=== PATIENT | female | born 1995 | race Caucasian/White ===

== ENCOUNTER 2021-01-15 19:13 | Emergency (ER) | payer MEDICAID ==
--- NOTE | 2021-01-15 21:05 | EDM.PDOC ---
ED HPI GENERAL MEDICAL PROBLEM - General Chief Complaint: VISUALIZER Problem Stated Complaint: 18 WKS -VAGINAL PRESSURE Time Seen by Provider: 01/15/21 19:41 Source of Information: Reports: Patient, RN Notes Reviewed History Limitations: Reports: No Limitations - History of Present Illness INITIAL COMMENTS - FREE TEXT/NARRATIVE: Patient is a 25-year-old female who presents to the ER for evaluation of her and vaginal/pelvic pressure. Patient states she is about 18 weeks . She is a A1 with 1 spontaneous miscarriage. She is followed by Dr. Busby for VISUALIZER. States that everything is been going well with the . She states over the last couple days however she has had some whitish discharge coming from her vagina but no gush of fluids, or any sort of vaginal bleeding. Patient is having some pelvic pressure but not a lot of other urinary symptoms. States she is going low but more frequent than normal. But she attributed that to . She states that she still has the pressure after she voids however. Patient denies any other sick-like symptoms, fever/chills, cough/shortness of breath, nausea/vomiting/diarrhea. Lower Abdomen Pain Score (Numeric/FACES): 6 - Related Data Allergies Allergy/AdvReac Type Severity Reaction Status Date / Time No Known Allergies Allergy Verified 01/15/21 19:31 Home Meds: Home Meds . [No Known Home Meds] 01/15/21 [History] Past Medical History - Past Health History Medical/Surgical History: Denies Medical/Surgical History Social & Family History - Tobacco Use Tobacco Use Status *Q: Never Tobacco User Second Hand Smoke Exposure: No - Recreational Drug Use Recreational Drug Use: No ED ROS GENERAL - Review of Systems Review Of Systems: Comprehensive ROS is negative, except as noted in HPI. ED EXAM - Physical Exam Exam: See Below Exam Limited By: No Limitations General Appearance: Alert, WD/WN, No Apparent Distress Respiratory/Chest: No Respiratory Distress, Lungs Clear, Normal Breath Sounds, No Accessory Muscle Use, Chest Non-Tender Cardiovascular: Normal Peripheral Pulses, Regular Rate, Rhythm, No Edema GI/Abdominal Exam: Normal Bowel Sounds, Soft, Non-Tender, No Distention, No Mass Heart Tones: Present Heart Tones per Min: 140 Movement: Not Appreciated Neurological: Alert, Oriented, Normal Cognition, No Motor/Sensory Deficits Psychiatric: Normal Affect, Normal Mood Skin Exam: Warm, Dry, Intact, Normal Color, No Rash Course - Vital Signs Last Recorded V/S: Last Vital Signs Temp 98 F 01/15/21 19:28 Pulse 84 01/15/21 19:28 Resp 16 01/15/21 19:28 BP 109/61 01/15/21 19:28 Pulse Ox 98 01/15/21 19:28 - Orders/Labs/Meds Orders: Active Orders 24 hr Category Date Time Status OB Ltd 1 or More Fetus [US] Stat Exams 01/15/21 19:53 Taken CULTURE URINE [MREF] Urgent Lab 01/15/21 20:09 Received Labs: Laboratory Tests 01/15/21 Range/Units 20:31 Urine Color Yellow (Yellow) Urine Appearance Clear (Clear) Urine pH 7.0 (5.0-8.0) Ur Specific [place] > or = 1.030 (1.005-1.030) Urine Protein Negative (Negative) Urine Glucose (UA) Negative (Negative) Urine Ketones Negative (Negative) Urine Occult Blood Trace-intact H (Negative) Urine Nitrite Negative (Negative) Urine Bilirubin Negative (Negative) Urine Urobilinogen 1.0 (0.2-1.0) Ur Leukocyte Esterase Negative (Negative) Urine RBC 0-5 (0-5) /hpf Urine WBC 0-5 (0-5) /hpf Ur Squamous Epith Cells 10-20 H (0-5) /hpf Urine Bacteria Moderate H (FEW) /hpf Urine Mucus Few (FEW) /hpf - Re-Assessments/Exams Free Text/Narrative Re-Assessment/Exam: 01/15/21 21:00 Patient presents to the ER for her vaginal/pelvic pressure in . A ultrasound demonstrated a normal fetus measuring at 18 weeks 2 days with an appropriate amount of amniotic fluid. The child's heart rate on ultrasound was 132 bpm. Patient did give us a urine for a urinalysis and this also was without any sign of acute infection. A culture will be sent however for evaluation just to make sure that the epithelial cells are contaminant. Leukocyte Estrace is negative, nitrite is negative. Departure - Departure Time of Disposition: 21:01 Disposition: Home, Self-Care 01 Condition: Good Clinical Impression: Feeling pelvic pressure during in second trimester, antepartum, Vaginal discharge - Discharge Information *PRESCRIPTION DRUG MONITORING PROGRAM REVIEWED*: No *COPY OF PRESCRIPTION DRUG MONITORING REPORT IN PATIENT VERONICA: No Instructions: Pelvic Pain, Female, [id number] Referrals: Court Busby MD [Primary Care Provider] - Forms: ED Department Discharge Additional Instructions: You were evaluated in the ER today for a pelvic pressure in . Ultrasound demonstrated a normal fetus, with a heartbeat of 132 bpm, and an appropriate amount of amniotic fluid. Urinalysis was also unremarkable for any obvious sign of infection however culture will be sent for further evaluation. You will be called in 48 to 72 hours if you should require any sort of antibiotic coverage for this. Recommend you follow-up with your VISUALIZER tomorrow for reevaluation and to discuss your pelvic pressure symptoms, as there was no clear etiology of what would be causing the pelvic pressure other than the possibility of the fetus pushing on things. Do not hesitate to return to the ER at any time if symptoms change or worsen. Sepsis Event Note (ED) - Evaluation Sepsis Screening Result: No Definite Risk - Focused Exam Vital Signs: Vital Signs Temp Pulse Resp BP Pulse Ox 01/15/21 19:28 98 F 84 16 109/61 98 - My Orders Last 24 Hours: My Active Orders 01/15/21 19:53 OB Ltd 1 or More Fetus [US] Stat 01/15/21 20:09 CULTURE URINE [MREF] Urgent - Assessment/Plan Last 24 Hours: My Active Orders 01/15/21 19:53 OB Ltd 1 or More Fetus [US] Stat 01/15/21 20:09 CULTURE URINE [MREF] Urgent
--- NOTE | 2021-01-16 07:45 | US ---
Obstetrical ultrasound: Multiple real-time images were obtained transabdominally. Comparison: No prior obstetrical imaging is available. Dates: Working EVITA: EVITA 06/17/21, gestational age 18 weeks 1 day Current ultrasound: EVITA 06/16/21, gestational age 18 weeks 2 days presentation: Breech Placenta: Posterior with no findings of placenta previa Amniotic fluid: WALTER 9.6 cm Measurements: BPD: 3.97 cm - 18 weeks 1 day Head circumference: 14.71 cm - 18 weeks 0 days Abdominal circumference: 13.20 cm - 18 weeks 5 days Femur length: 2.61 cm - 18 weeks 0 days Estimated weight: 233 g (0 lbs. 8 oz.), estimated weight at the 54th percentile for age Heart rate: 132 bpm Cervical length: 4.7 cm Impression: 1. Single intrauterine fetus currently breech in presentation. Dates as noted above. 2. No definite acute abnormality is appreciated. This was not an anatomic survey. Diagnostic code #1 I agree with preliminary report from [facility], finalized on 01/15/21, 9:50 PM Central Daylight Time, code 1
== END 2021-01-15 21:15 | disposition home or self-care (01) ==
LOC: JD.ED 19:13
DX: O20.9 Hemorrhage in early pregnancy, unspecified (principal); Z3A.18 18 weeks gestation of pregnancy
CPT/HCPCS: 76815; 76815-26; 81001; 87086; 99284-25

== ENCOUNTER 2021-01-21 16:33 | Emergency (ER) | payer MEDICAID ==
[2021-01-21] MEDS ORDERED: Acetaminophen 325 MG Tab PO ONE (17:18)
--- NOTE | 2021-01-21 17:33 | EDM.PDOC ---
ED HPI GENERAL MEDICAL PROBLEM - General Chief Complaint: Back Pain or Injury Stated Complaint: LOWER BACK PAIN LEGS Time Seen by Provider: 01/21/21 16:55 Source of Information: Reports: Patient, RN Notes Reviewed History Limitations: Reports: No Limitations - History of Present Illness INITIAL COMMENTS - FREE TEXT/NARRATIVE: Patient is a 25-year-old female, 19 weeks gestation, presenting to the emergency department with complaints of low back pain with radiation down her bilateral legs, intermittent headaches, subjective fever, and cough. Symptoms have been present for the last few days. She has not checked her temperature at home but states that she felt warm. Reports a few days back she had some burning with urination, however this has resolved. Denies any significant shortness of breath. Does complain of some generalized body aches, but states it is worse in her low back and down her legs. Denies any pelvic cramping, vaginal bleeding, or abnormal vaginal discharge. She took 1 Tylenol PM around 10 AM today. Denies any vomiting or diarrhea. 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 ED EXAM,LOWER BACK PAIN/INJURY - Physical Exam Exam: See Below General Appearance: Alert, WD/WN, No Apparent Distress Respiratory/Chest: No Respiratory Distress, Lungs Clear, Normal Breath Sounds, No Accessory Muscle Use, Chest Non-Tender Cardiovascular: Normal Peripheral Pulses, Regular Rate, Rhythm, No Edema, No Gallop, No JVD, No Murmur, No Rub (Female) Exam: Heart Tones (156) Back Exam: Normal Inspection, Full Range of Motion, Vertebral Tenderness (L1-L4, ), Other (tenderness to bilateral SI joints) Neurological: Alert, Normal Mood/Affect, Normal Dorsiflexion, CN II-XII Intact, Normal Plantar Flexion, Normal Gait, Normal Reflexes, No Motor/Sensory Deficits, Oriented x 3 Psychiatric: Normal Affect, Normal Mood Skin Exam: Warm, Dry, Intact, Normal Color, No Rash Course - Vital Signs Last Recorded V/S: Last Vital Signs Temp 98.3 F 01/21/21 16:58 Pulse 93 01/21/21 16:58 Resp 18 01/21/21 16:58 BP 123/75 01/21/21 16:58 Pulse Ox 99 01/21/21 16:58 - Orders/Labs/Meds Labs: Laboratory Tests 01/21/21 01/21/21 01/21/21 Range/Units 17:10 17:24 17:24 WBC 5.38 (3.98-10.04) K/mm3 RBC 4.33 (3.98-5.22) M/mm3 Hgb 12.3 (11.2-15.7) gm/dl Hct 36.8 (34.1-44.9) % MCV 85.0 (79.4-94.8) fl MCH 28.4 (25.6-32.2) pg MCHC 33.4 (32.2-35.5) g/dl RDW Std Deviation 45.3 (36.4-46.3) fL Plt Count 282 (182-369) K/mm3 MPV 10.0 (9.4-12.3) fl Neut % (Auto) 80.2 H (34.0-71.1) % Lymph % (Auto) 12.3 L (19.3-51.7) % [place] % (Auto) 6.9 (4.7-12.5) % Eos % (Auto) 0 L (0.7-5.8) Baso % (Auto) 0.4 (0.1-1.2) % Neut # (Auto) 4.32 (1.56-6.13) K/mm3 Lymph # (Auto) 0.66 L (1.18-3.74) K/mm3 [place] # (Auto) 0.37 H (0.24-0.36) K/mm3 Eos # (Auto) 0.00 L (0.04-0.36) K/mm3 Baso # (Auto) 0.02 (0.01-0.08) K/mm3 Sodium 136 (136-145) mEq/L Potassium 3.4 L (3.5-5.1) mEq/L Chloride 102 (98-107) mEq/L Carbon Dioxide 26 (21-32) mEq/L Anion Gap 11.4 (5-15) BUN 5 L (7-18) mg/dL Creatinine 0.6 (0.55-1.02) mg/dL Est Cr Clr Drug Dosing 123.77 mL/min Estimated GFR (MDRD) > 60 (>60) mL/min BUN/Creatinine Ratio 8.3 L (14-18) Glucose 100 H (70-99) mg/dL Calcium 8.5 (8.5-10.1) mg/dL Total Bilirubin 0.3 (0.2-1.0) mg/dL AST 18 (15-37) U/L ALT 20 (14-59) U/L Alkaline Phosphatase 90 (46-116) U/L C-Reactive Protein 2.7 H* (<1.0) mg/dL Total Protein 6.9 (6.4-8.2) g/dl Albumin 3.0 L (3.4-5.0) g/dl Globulin 3.9 gm/dL Albumin/Globulin Ratio 0.8 L (1-2) Urine Color Yellow (Yellow) Urine Appearance Clear (Clear) Urine pH 6.0 (5.0-8.0) Ur Specific [place] > or = 1.030 (1.005-1.030) Urine Protein 1+ H (Negative) Urine Glucose (UA) Negative (Negative) Urine Ketones 3+ H (Negative) Urine Occult Blood Trace-lysed H (Negative) Urine Nitrite Negative (Negative) Urine Bilirubin 1+ H (Negative) Urine Urobilinogen 1.0 (0.2-1.0) Ur Leukocyte Esterase Negative (Negative) Urine RBC 0-5 (0-5) /hpf Urine WBC 0-5 (0-5) /hpf Ur Squamous Epith Cells 5-10 H (0-5) /hpf Urine Bacteria Moderate H (FEW) /hpf Urine Mucus Few (FEW) /hpf SARS-CoV-2 RNA (REBEL) (NEGATIVE) 01/21/21 Range/Units 17:28 WBC (3.98-10.04) K/mm3 RBC (3.98-5.22) M/mm3 Hgb (11.2-15.7) gm/dl Hct (34.1-44.9) % MCV (79.4-94.8) fl MCH (25.6-32.2) pg MCHC (32.2-35.5) g/dl RDW Std Deviation (36.4-46.3) fL Plt Count (182-369) K/mm3 MPV (9.4-12.3) fl Neut % (Auto) (34.0-71.1) % Lymph % (Auto) (19.3-51.7) % [place] % (Auto) (4.7-12.5) % Eos % (Auto) (0.7-5.8) Baso % (Auto) (0.1-1.2) % Neut # (Auto) (1.56-6.13) K/mm3 Lymph # (Auto) (1.18-3.74) K/mm3 [place] # (Auto) (0.24-0.36) K/mm3 Eos # (Auto) (0.04-0.36) K/mm3 Baso # (Auto) (0.01-0.08) K/mm3 Sodium (136-145) mEq/L Potassium (3.5-5.1) mEq/L Chloride (98-107) mEq/L Carbon Dioxide (21-32) mEq/L Anion Gap (5-15) BUN (7-18) mg/dL Creatinine (0.55-1.02) mg/dL Est Cr Clr Drug Dosing mL/min Estimated GFR (MDRD) (>60) mL/min BUN/Creatinine Ratio (14-18) Glucose (70-99) mg/dL Calcium (8.5-10.1) mg/dL Total Bilirubin (0.2-1.0) mg/dL AST (15-37) U/L ALT (14-59) U/L Alkaline Phosphatase (46-116) U/L C-Reactive Protein (<1.0) mg/dL Total Protein (6.4-8.2) g/dl Albumin (3.4-5.0) g/dl Globulin gm/dL Albumin/Globulin Ratio (1-2) Urine Color (Yellow) Urine Appearance (Clear) Urine pH (5.0-8.0) Ur Specific [place] (1.005-1.030) Urine Protein (Negative) Urine Glucose (UA) (Negative) Urine Ketones (Negative) Urine Occult Blood (Negative) Urine Nitrite (Negative) Urine Bilirubin (Negative) Urine Urobilinogen (0.2-1.0) Ur Leukocyte Esterase (Negative) Urine RBC (0-5) /hpf Urine WBC (0-5) /hpf Ur Squamous Epith Cells (0-5) /hpf Urine Bacteria (FEW) /hpf Urine Mucus (FEW) /hpf SARS-CoV-2 RNA (REBEL) Positive H (NEGATIVE) Meds: Medications Discontinued Medications Generic Name Dose Route Start Last Admin Trade Name Freq PRN Reason Stop Dose Admin Acetaminophen 975 mg 01/21/21 17:18 01/21/21 17:43 Acetaminophen 325 Mg Tab PO 01/21/21 17:19 975 mg NOW ONE Administration Diphenhydramine HCl 50 mg 01/21/21 18:20 Diphenhydramine 50 Mg/Ml Sdv IVPUSH ONETIME PRN hypersensitivity reaction Epinephrine HCl 0.3 mg 01/21/21 18:20 Epinephrine 1 Mg/Ml Sdv IM ONETIME PRN hypersensitivity reaction Famotidine 20 mg 01/21/21 18:20 Famotidine 20 Mg/2 Ml Sdv IVPUSH ONETIME PRN hypersensitivity reaction CASIRIVIMAB/IMDEVIMAB 10 ml/ 110 mls @ 220 mls/hr 01/21/21 18:20 01/21/21 19:19 Sodium Chloride IV 01/21/21 18:49 220 mls/hr ONETIME ONE Administration Methylprednisolone Sodium Succinate 125 mg 01/21/21 18:20 Methylprednisolone Sodium Succinate 125 Mg/2 Ml Sdv IVPUSH ONETIME PRN hypersensitivity reaction Sodium Chloride 30 ml 01/21/21 18:30 01/21/21 19:53 Sodium Chloride 0.9% 10 Ml Syringe FLUSH 30 ml ASDIRECTED VIMAL Administration - Re-Assessments/Exams Free Text/Narrative Re-Assessment/Exam: Patient is a 25-year-old female presenting to the emergency department with complaints of mild cough, generalized body aches, worse in her back and legs, and intermittent headaches. She is 19 weeks . She has tenderness palpation L1-L5 as well as bilateral SI joints. We have ordered blood work, urinalysis, Covid test. We will give her Tylenol 975 mg orally. 01/21/21 1815 Patient's Covid test is positive. I spoke with patient to provide information about Regeneron treatment for patient I offered them the ``Patient and Caregiver DUC Regeneron Fact Sheet to read and review I stated the drug has been approved by an emergency use authorization (EUA) process and has not fully been FDA reviewed or approved The patient meets the EUA requirements I discussed there are other potential treatment options that are currently not F DA approved to treat COVID-19. Offered opportunity to ask questions and all questions were answered Patient voiced understanding and agreed to proceed with treatment for patient. 01/21/21 20:50 Patient completed her infusion of Regeneron in the waiting period without adverse event. We will discharge her home. Discussed return precautions. Discharge instructions as documented. Departure - Departure Time of Disposition: 20:50 Disposition: Home, Self-Care 01 Condition: Good Clinical Impression: COVID-19 - Discharge Information *PRESCRIPTION DRUG MONITORING PROGRAM REVIEWED*: No *COPY OF PRESCRIPTION DRUG MONITORING REPORT IN PATIENT VERONICA: No Instructions: COVID-19 Referrals: Court Busby MD [Primary Care Provider] - Forms: ED Department Discharge Additional Instructions: You were seen in the emergency department today for back pain, body aches, cough, and headaches. Work-up included blood work, urinalysis, and Covid test. Your Covid test was found to be positive. While in the ER, you received an fusion of Regeneron which is a monoclonal antibody. The purpose of this is to help you fight off the Covid virus. Recommend you go home and rest. Increase your fluid intake. Use Tylenol 650 mg every 4 hours as needed for headache and body aches. Quarantine as directed by the [facility]. They should be in contact with you within the next couple days. If you should experience any new or worsening symptoms of concern, please do not hesitate to return to the emergency department for reevaluation. Sepsis Event Note (ED) - Evaluation Sepsis Screening Result: No Definite Risk
[2021-01-21] MEDS ORDERED: methylPREDNISolone Sodium Succinate 125 MG/2 ML SDV IVPUSH PRN (18:20)
[2021-01-21] MEDS ORDERED: diphenhydrAMINE 50 MG/ML SDV IVPUSH PRN (18:20)
[2021-01-21] MEDS ORDERED: Famotidine 20 MG/2 ML SDV IVPUSH PRN (18:20)
[2021-01-21] MEDS ORDERED: EPINEPHrine 1 MG/ML SDV IM PRN (18:20)
[2021-01-21] MEDS ORDERED: Sodium Chloride 0.9% 10 ML Syringe FLUSH SCH (18:30)
== END 2021-01-21 21:10 | disposition home or self-care (01) ==
LOC: JD.ED 16:33
DX: U07.1 COVID-19 (principal); E66.9 Obesity, unspecified; Z68.34 Body mass index [BMI] 34.0-34.9, adult
CPT/HCPCS: 36415; 80053; 81001; 85025; 86140; 87635; 99283; A9270; M0243; Q0243; U0002

== ENCOUNTER 2021-06-10 05:39 | Inpatient (IN) | payer SELFPAY ==
[~2021-06-10 05:39] MED LIST: Lactated Ringers 1,000 ML IV SCH; Metoclopramide 10 MG/2 ML SDV IVPUSH ONE; Oxytocin/Lactated Ringers 10 UNIT/1,000 ML BAG IV SCH; Sodium Chloride 0.9% 10 ML Syringe FLUSH PRN
[2021-06-10] MEDS ORDERED: Citric Acid/Sodium Citrate Solution 30 ML Cup PO ONE (06:00)
[2021-06-10] MEDS ORDERED: ceFAZolin 2 GM in Sodium Chloride 0.9% 50 ML IV ONE (06:00)
[2021-06-10] MEDS ORDERED: fentaNYL 100 MCG/2 ML SDV ONE (06:50)
[2021-06-10] MEDS ORDERED: Oxytocin 10 Units/1 ML SDV ONE (06:50)
[2021-06-10] MEDS ORDERED: ceFAZolin 1 GM Vial ONE (06:50)
[2021-06-10] MEDS ORDERED: Morphine PF 10 MG/10 ML SDV ONE (06:51)
[2021-06-10] MEDS ORDERED: fentaNYL 100 MCG/2 ML SDV IVPUSH PRN (07:29)
[2021-06-10] MEDS ORDERED: diphenhydrAMINE 50 MG/ML SDV IVPUSH PRN ×2 (07:29→10:38)
[2021-06-10] MEDS ORDERED: Ondansetron 4 MG/2 ML SDV IVPUSH PRN ×2 (07:29→16:45)
[2021-06-10] MEDS ORDERED: Lactated Ringers 1,000 ML ONE (08:20)
[2021-06-10] MEDS ORDERED: Ondansetron 4 MG/2 ML SDV ONE (08:22)
[2021-06-10] MEDS ORDERED: Ketorolac 30 MG/ML SDV ONE (08:22)
[2021-06-10] MEDS ORDERED: Acetaminophen 325 MG Tab PO PRN (10:38)
[2021-06-10] MEDS ORDERED: Naloxone 0.4 MG/ML SDV IVPUSH PRN (10:38)
[2021-06-10] MEDS ORDERED: Dextrose 5%-Lactated Ringers 1,000 ML IV SCH (10:38)
[2021-06-10] MEDS ORDERED: ePHEDrine 50 MG/ML SDV IVPUSH PRN (10:38)
[2021-06-10] MEDS ORDERED: Ondansetron 4 MG/2 ML SDV IV PRN (10:38)
[2021-06-10] MEDS ORDERED: Acetaminophen/oxyCODONE 325-5 MG Tab PO PRN ×2 (13:31)
[2021-06-10] MEDS: Ketorolac 30 MG/ML SDV IVPUSH SCH ×2 (13:54→20:14)
[2021-06-10] MEDS ORDERED: Lactated Ringers 500 ML IV ONE (16:42)
[2021-06-10] MEDS ORDERED: Lactated Ringers 1,000 ML IV ONE (16:55)
[2021-06-10] MEDS ORDERED: Promethazine 25 MG/ML SDV IM PRN (18:42)
[2021-06-11] MEDS: Docusate Sodium 100 MG Cap PO PRN ×2 (00:45→19:45)
[2021-06-11] MEDS: Ketorolac 30 MG/ML SDV IVPUSH SCH (02:31)
[2021-06-11] MEDS: Ibuprofen 600 MG Tab PO PRN (19:45)
[2021-06-12] MEDS: Ibuprofen 600 MG Tab PO PRN (05:05)
== END 2021-06-12 10:30 | disposition home or self-care (01) | DRG 788 ==
LOC: JD.OB 05:39 → EDSTATUS 08:00
PROVIDERS: ADMIT Obstetrics & Gynecology; ATTEND Obstetrics & Gynecology
PROC: 10D00Z1 Extraction of Products of Conception, Low, Open Approach (ICD-10-PCS; principal; 2021-06-10)
DX: O34.211 Maternal care for low transverse scar from previous cesarean delivery (principal); Z3A.39 39 weeks gestation of pregnancy; Z37.0 Single live birth
CPT/HCPCS: 01961; 36415; 59025; 85025; 85027; 86592; 86850; 86900; 86901; 94762; A9270-GY; J0690; J1885; J2274; J2370; J2405; J2590; J2765; J3010; J7120; J7121

== ENCOUNTER 2021-08-22 22:11 | Emergency (ER) | payer MEDICAID ==
[2021-08-22] MEDS ORDERED: Cephalexin 500 MG Cap PO ONE (22:37)
[2021-08-22] MEDS ORDERED: Ketorolac 15 MG/ML SDV IM ONE (22:37)
== END 2021-08-22 22:45 | disposition home or self-care (01) ==
LOC: JD.ED 22:11
DX: L60.0 Ingrowing nail (principal); E66.9 Obesity, unspecified; Z68.41 Body mass index [BMI] 40.0-44.9, adult; Z79.899 Other long term (current) drug therapy
CPT/HCPCS: 96372; 99283; A9270; J1885

== ENCOUNTER 2023-04-20 19:49 | Emergency (ER) | payer SELFPAY ==
[2023-04-20 21:12] LABS: CORONAVIRUS COVID-19 NAA NEGATIVE (NEGATIVE); INFLUENZA A NAA NEGATIVE (NEGATIVE)
[2023-04-20] MEDS ORDERED: Loperamide 2 MG Cap PO ONE (22:20)
[2023-04-20] MEDS ORDERED: Ondansetron 4 MG Tab.DIS PO ONE (22:20)
== END 2023-04-20 23:00 | disposition home or self-care (01) ==
LOC: JD.ED 19:49
DX: A08.4 Viral intestinal infection, unspecified (principal); Z20.822 Contact with and (suspected) exposure to COVID-19; Z86.16 Personal history of COVID-19
CPT/HCPCS: 0240U; 99284; A9270

== ENCOUNTER 2023-05-21 04:57 | Emergency (ER) | payer SELFPAY ==
[2023-05-21] MEDS ORDERED: Sodium Chloride 0.9% 10 ML Syringe FLUSH PRN (05:20)
[2023-05-21] MEDS ORDERED: Sodium Chloride 0.9% 1,000 ML IV ONE ×2 (05:21→08:09)
[2023-05-21] MEDS ORDERED: Ondansetron 4 MG/2 ML SDV IVPUSH ONE (05:21)
[2023-05-21 05:56] LABS: BASOPHILS PERCENT AUTO 0.2 % (0.0-1.0); EOSINOPHILS PERCENT AUTO 0.3 % (0.0-6.0); HEMATOCRIT 42.8 % (37.0-47.0); HEMOGLOBIN 14.2 gm/dl (12.0-16.0); IMMATURE GRAN ABSOLUTE AUTO 0.03 K/mm3 (0.00-0.05); IMMATURE GRAN PERCENT AUTO 0.3 % (0.0-0.4); LYMPHOCYTES ABSOLUTE AUTO 0.7 K/mm3 (1.0-4.8); LYMPHOCYTES PERCENT AUTO 7.3 % (24.0-44.0); MEAN CORPUSCULAR HEMOGLOBIN 27.3 pg (28.0-32.0); MEAN CORPUSCULAR HGB CONC 33.2 g/dl (32.0-36.0); MEAN CORPUSCULAR VOLUME 82.3 fl (83.0-99.0); MEAN PLATELET VOLUME 10.9 fl (9.4-12.3); MONOCYTES ABSOLUTE AUTO 0.3 K/mm3 (0.0-0.8); MONOCYTES PERCENT AUTO 2.9 % (0.0-8.0); NEUTROPHILS ABSOLUTE AUTO 8.8 K/mm3 (1.8-7.7); PLATELET COUNT,PLT 262 K/mm3 (150-400)
[2023-05-21 06:08] LABS: A/G RATIO 0.7 (1-2); ALANINE AMINOTRANSFERASE,ALT 18 U/L (14-59); ALBUMIN 3.3 g/dl (3.4-5.0); ALKALINE PHOSPHATASE 120 U/L (46-116); ANION GAP 12.7 (5-15); BILIRUBIN TOTAL 0.5 mg/dL (0.2-1.0); BLOOD UREA NITROGEN,BUN 9 mg/dL (7-18); BUN/CREATININE RATIO 12.9 (14-18); CALCIUM 9.1 mg/dL (8.5-10.1); CARBON DIOXIDE,CO2 27 mEq/L (21-32); CHLORIDE,CL 102 mEq/L (98-107); CREATININE 0.7 mg/dL (0.55-1.02); ESTIMATED GFR 121 mL/min (>60); GLUCOSE RANDOM 136 mg/dL (70-99); MAGNESIUM 1.9 mg/dL (1.8-2.4); SODIUM,NA 137 mEq/L (136-145)
[2023-05-21 06:17] LABS: ASPARTATE AMNIOTRANSFERASE,AST 19 U/L (15-37); POTASSIUM,K 4.7 mEq/L (3.5-5.1)
[2023-05-21 06:25] LABS: SLIDE REVIEW NORMAL SMEAR
[2023-05-21 07:07] LABS: APPEARANCE,URINE SLT CLOUDY (Clear); BILIRUBIN,URINE NEGATIVE (Negative); COLOR,URINE AMBER (Yellow); GLUCOSE,URINE NEGATIVE (Negative); KETONES,URINE 2+ (Negative); LEUKOCYTE ESTERASE,URINE NEGATIVE (Negative); NITRITE,URINE NEGATIVE (Negative); OCCULT BLOOD,URINE NEGATIVE (Negative); PH,URINE 5.5 (5.0-8.0); PROTEIN,URINE 1+ (Negative); UROBILINOGEN,URINE 0.2 (0.2-1.0)
[2023-05-21 07:11] LABS: CORONAVIRUS COVID-19 NAA NEGATIVE (NEGATIVE); INFLUENZA A NAA NEGATIVE (NEGATIVE); RESPIRATORY SYNCYTIAL VIR NAA NEGATIVE (NEGATIVE)
[2023-05-21 07:52] LABS: BACTERIA,URINE MODERATE /hpf (FEW); MUCUS,URINE MODERATE /hpf (FEW); RBC,URINE 0-5 /hpf (0-5); SQUAMOUS EPITHELIAL CELLS,UR 0-5 /hpf (0-5); WBC,URINE 0-5 /hpf (0-5)
[2023-05-21] MEDS ORDERED: Metoclopramide 10 MG/2 ML SDV IVPUSH ONE (08:09)
== END 2023-05-21 09:55 | disposition home or self-care (01) ==
LOC: JD.ED 04:57
DX: O99.611 Diseases of the digestive system complicating pregnancy, first trimester (principal); A08.4 Viral intestinal infection, unspecified; O21.9 Vomiting of pregnancy, unspecified; Z3A.09 9 weeks gestation of pregnancy; Z86.16 Personal history of COVID-19; Z79.899 Other long term (current) drug therapy
CPT/HCPCS: 0241U; 36415; 80053; 81001; 83735; 85025; 96361; 96374; 96375; 99284; J2405; J2765; J7030

== ENCOUNTER 2023-07-04 13:33 | Emergency (ER) | payer SELFPAY ==
[2023-07-04 14:09] LABS: BASOPHILS PERCENT AUTO 0.4 % (0.0-1.0); EOSINOPHILS ABSOLUTE AUTO 0.1 K/mm3 (0.0-0.4); EOSINOPHILS PERCENT AUTO 0.9 % (0.0-6.0); HEMATOCRIT 34.8 % (37.0-47.0); HEMOGLOBIN 11.7 gm/dl (12.0-16.0); IMMATURE GRAN ABSOLUTE AUTO 0.03 K/mm3 (0.00-0.05); IMMATURE GRAN PERCENT AUTO 0.4 % (0.0-0.4); LYMPHOCYTES PERCENT AUTO 27.4 % (24.0-44.0); MEAN CORPUSCULAR HEMOGLOBIN 26.7 pg (28.0-32.0); MEAN CORPUSCULAR HGB CONC 33.6 g/dl (32.0-36.0); MEAN CORPUSCULAR VOLUME 79.5 fl (83.0-99.0); MEAN PLATELET VOLUME 10.2 fl (9.4-12.3); MONOCYTES ABSOLUTE AUTO 0.4 K/mm3 (0.0-0.8); MONOCYTES PERCENT AUTO 4.9 % (0.0-8.0); NEUTROPHILS ABSOLUTE AUTO 4.9 K/mm3 (1.8-7.7); PLATELET COUNT,PLT 295 K/mm3 (150-400); RED BLOOD CELL COUNT 4.38 M/mm3 (4.10-5.30); WHITE BLOOD CELL COUNT,WBC 7.38 K/mm3 (3.9-11.3)
[2023-07-04 14:25] LABS: A/G RATIO 0.7 (1-2); ALBUMIN 2.7 g/dl (3.4-5.0); ANION GAP 16.4 (5-15); BILIRUBIN TOTAL 0.2 mg/dL (0.2-1.0); CALCIUM 8.5 mg/dL (8.5-10.1); CREATININE 0.5 mg/dL (0.55-1.02); EST CRCL DRUG DOSING (CG) 139.81 mL/min; POTASSIUM,K 3.4 mEq/L (3.5-5.1); PROTEIN TOTAL,TP 6.7 g/dl (6.4-8.2)
[2023-07-04] MEDS: Sodium Chloride 0.9% 1,000 ML IV STA (16:12)
[2023-07-04] MEDS: Sodium Chloride 0.9% 10 ML Syringe FLUSH PRN (16:12)
== END 2023-07-04 17:30 | disposition home or self-care (01) ==
LOC: JD.ED 13:33
DX: O99.891 Other specified diseases and conditions complicating pregnancy (principal); R55 Syncope and collapse; Z86.16 Personal history of COVID-19; Z79.899 Other long term (current) drug therapy; Z3A.15 15 weeks gestation of pregnancy
CPT/HCPCS: 36415; 80053; 85025; 85379; 93005; 96360; 99285; J3490; J7030; 93010; 99282

== ENCOUNTER 2024-09-15 23:07 | Emergency (ER) | payer MEDICAID ==
[2024-09-15] MEDS: Sodium Chloride 0.9% 10 ML Syringe FLUSH PRN (23:51)
[2024-09-15] MEDS: Meclizine 25 MG Tab PO ONE (23:51)
[2024-09-15] MEDS: Sodium Chloride 0.9% 1,000 ML IV ONE (23:52)
[2024-09-16 00:06] LABS: BASOPHILS ABSOLUTE AUTO 0.1 K/mm3 (0.0-0.2); BASOPHILS PERCENT AUTO 0.7 % (0.0-1.0); EOSINOPHILS ABSOLUTE AUTO 0.1 K/mm3 (0.0-0.4); EOSINOPHILS PERCENT AUTO 1.3 % (0.0-6.0); HEMATOCRIT 39.1 % (37.0-47.0); HEMOGLOBIN 12.1 gm/dl (12.0-16.0); IMMATURE GRAN ABSOLUTE AUTO 0.04 K/mm3 (0.00-0.05); IMMATURE GRAN PERCENT AUTO 0.5 % (0.0-0.4); LYMPHOCYTES ABSOLUTE AUTO 2.4 K/mm3 (1.0-4.8); LYMPHOCYTES PERCENT AUTO 27.8 % (24.0-44.0); MEAN CORPUSCULAR HEMOGLOBIN 24.1 pg (28.0-32.0); MEAN CORPUSCULAR HGB CONC 30.9 g/dl (32.0-36.0); MEAN CORPUSCULAR VOLUME 77.9 fl (83.0-99.0); MEAN PLATELET VOLUME 9.7 fl (9.4-12.3); MONOCYTES ABSOLUTE AUTO 0.6 K/mm3 (0.0-0.8); MONOCYTES PERCENT AUTO 6.5 % (0.0-8.0); NEUTROPHILS ABSOLUTE AUTO 5.4 K/mm3 (1.8-7.7); NEUTROPHILS PERCENT AUTO 63.2 % (41.0-71.0); PLATELET COUNT,PLT 358 K/mm3 (150-400); RED BLOOD CELL COUNT 5.02 M/mm3 (4.10-5.30); WHITE BLOOD CELL COUNT,WBC 8.46 K/mm3 (3.9-11.3)
[2024-09-16 00:37] LABS: ALBUMIN 3.6 g/dl (3.4-5.0); ANION GAP 10.5 (5-15); BILIRUBIN TOTAL 0.2 mg/dL (0.2-1.0); BUN/CREATININE RATIO 18.6 (14-18); CALCIUM 8.4 mg/dL (8.5-10.1); CREATININE 0.7 mg/dL (0.55-1.02); EST CRCL DRUG DOSING (CG) 98.09 mL/min; MAGNESIUM 1.8 mg/dL (1.8-2.4); POTASSIUM,K 3.5 mEq/L (3.5-5.1); PROTEIN TOTAL,TP 7.4 g/dl (6.4-8.2); TSH 1.017 uIU/mL (0.358-3.74)
[2024-09-16 02:05] LABS: APPEARANCE,URINE CLEAR (Clear); BILIRUBIN,URINE NEGATIVE (Negative); COLOR,URINE YELLOW (Yellow); GLUCOSE,URINE NEGATIVE (Negative); KETONES,URINE TRACE (Negative); LEUKOCYTE ESTERASE,URINE NEGATIVE (Negative); NITRITE,URINE NEGATIVE (Negative); OCCULT BLOOD,URINE NEGATIVE (Negative); PH,URINE 6.5 (5.0-8.0); PROTEIN,URINE NEGATIVE (Negative); UROBILINOGEN,URINE 0.2 (0.2-1.0)
== END 2024-09-16 02:24 | disposition home or self-care (01) ==
LOC: JD.ED 23:07
DX: R42 Dizziness and giddiness (principal); E66.9 Obesity, unspecified; Z87.09 Personal history of other diseases of the respiratory system; Z86.69 Personal history of other diseases of the nervous system and sense organs; Z86.16 Personal history of COVID-19; Z68.41 Body mass index [BMI] 40.0-44.9, adult
CPT/HCPCS: 36415; 71045; 80053; 81003; 83735; 84443; 84703; 85025; 93005; 96360; 96361; 99284; A9270; J7030; 93010; 99283